=== PATIENT | male | born 1990 | race African-American/Black ===

== ENCOUNTER 2023-01-01 08:00 | Emergency (ER) | payer SELFPAY ==
[2023-01-01 09:35] VITALS: BMI 25.9
[2023-01-01] MEDS ORDERED: ACETAMINOPHEN 1000 MG/100 ML BAG IVPB ONE (09:47)
[2023-01-01] MEDS ORDERED: ACETAMINOPHEN INJECTION 100 ML IVPB ONE (10:55)
[2023-01-01 11:59] LABS: BASO % 0.8 % (0-2.0); EOS % 0.7 % (0-4.5); HEMATOCRIT 39.6 % (35.4-49); HEMOGLOBIN 13.4 GM/dL (11.7-16.9); LYMPH % 34.6 % (8-40); MCH 31.1 pg (25.7-33.7); MCHC 33.9 g/dl (32.0-35.9); MEAN CELL VOLUME 91.8 fl (80-96); MONO % 10.2 % (3.8-10.2); NEUT % 53.7 % (42.8-82.8); PLATELET COUNT 225 10^3/uL (134-434); RBC 4.32 M/mm3 (4.00-5.60); RDW 13.5 % (11.9-15.9); WHITE BLOOD COUNT 4.6 K/mm3 (4.0-10.0)
[2023-01-01 12:15] LABS: POTASSIUM 4.2 mmol/L (3.5-5.1)
[2023-01-01 12:19] LABS: BLOOD UREA NITROGEN 9.8 mg/dL (7-18); CALCIUM 10.2 mg/dL (8.5-10.1)
[2023-01-01 12:20] LABS: ALBUMIN 3.9 g/dl (3.4-5.0)
[2023-01-01 12:24] LABS: BILIRUBIN,TOTAL 0.5 mg/dL (0.2-1); TOT PROT 7.2 g/dl (6.4-8.2)
[2023-01-01 12:41] VITALS: BP 128/79; PULSE 62; RESP 17; TEMP 98.9
== END 2023-01-01 15:40 | disposition home or self-care (01) ==
LOC: JER 08:00
PROC: 3E033NZ Introduction of Analgesics, Hypnotics, Sedatives into Peripheral Vein, Percutaneous Approach (ICD-10-PCS; principal; 2023-01-01)
DX: R06.02 Shortness of breath (principal); R10.30 Lower abdominal pain, unspecified
CPT/HCPCS: 36415; 71046-TC-FY; 74177-TC; 80053; 83690; 84484; 85025; 93005; 93010; 99285-25; Q9967

== ENCOUNTER 2023-05-11 09:26 | Inpatient (IN) | payer OTHER ==
[2023-05-11 09:39] VITALS: BMI 25.2
[2023-05-11] MEDS ORDERED: MAG HYDROX/AL HYDROX/SIMETH 30 ML UNIT-DOSE CUP PO ONE (10:01)
[2023-05-11] MEDS ORDERED: ONDANSETRON 4 MG/2 ML VIAL IVPUSH ONE (10:01)
[2023-05-11] MEDS ORDERED: LACTATED RINGERS SOLUTION 1000 ML INFUS.BAG IV ONE (10:01)
[2023-05-11] MEDS ORDERED: FAMOTIDINE 20 MG/50 ML IVPB 20 MG/50 ML MG IVPB ONE ×2 (10:01→11:10)
[2023-05-11] MEDS ORDERED: ACETAMINOPHEN 1000 MG/100 ML BAG IVPB ONE (10:01)
[2023-05-11] MEDS ORDERED: ACETAMINOPHEN INJECTION 100 ML IVPB ONE (11:09)
[2023-05-11] MEDS ORDERED: ONDANSETRON 4 MG/2 ML VIAL ONE (11:09)
[2023-05-11] MEDS ORDERED: MAG HYDROX/AL HYDROX/SIMETH 30 ML UNIT-DOSE CUP ONE (11:09)
[2023-05-11 11:26] LABS: BASO % 0.5 % (0-2.0); EOS % 0.9 % (0-4.5); HEMOGLOBIN 13.4 GM/dL (11.7-16.9); LYMPH % 16.9 % (8-40); MCH 30.8 pg (25.7-33.7); MCHC 32.7 g/dl (32.0-35.9); MEAN PLT VOLUME 9.2 fl (7.5-11.1); MONO % 9.6 % (3.8-10.2); NEUT % 72.1 % (42.8-82.8); PLATELET COUNT 244 10^3/uL (134-434); RBC 4.37 M/mm3 (4.00-5.60); RDW 13.2 % (11.9-15.9); WHITE BLOOD COUNT 5.4 K/mm3 (4.0-10.0)
[2023-05-11 11:29] LABS: EPI CELLS 30 /uL (0-25.1); HYALINE CASTS 2 /uL (0-3.1); PH,URINE 6.5 (5.0-8.0); URINE APPEARANCE CLEAR; URINE BACTERIA 60 /uL (0-1359); URINE BILIRUBIN 2+ (NEGATIVE); URINE COLOR DK YELLOW; URINE GLUCOSE (UA) NEGATIVE (NEGATIVE); URINE KETONE 1+ (NEGATIVE); URINE LEUK ESTERASE 2+ (NEGATIVE); URINE NITRITE NEGATIVE (NEGATIVE); URINE PROTEIN TRACE (NEGATIVE); URINE RBC 30 /uL (0-23.9); URINE WBC 175 /uL (0-25.8)
[2023-05-11 11:51] LABS: CHLORIDE 104 mmol/L (98-107); SODIUM 136 mmol/L (136-145)
[2023-05-11 11:53] LABS: ALBUMIN 3.7 g/dl (3.4-5.0); CALCIUM 9.3 mg/dL (8.5-10.1)
[2023-05-11 11:55] LABS: BLOOD UREA NITROGEN 11.7 mg/dL (7-18); CO2 29 mmol/L (21-32); GLUCOSE,RANDOM 94 mg/dL (74-106); MAGNESIUM 2.3 mg/dL (1.8-2.4)
[2023-05-11 11:57] LABS: CREATININE 1.2 mg/dL (0.55-1.3)
[2023-05-11 11:59] LABS: ALK PHOS 152 U/L (45-117); BILIRUBIN,TOTAL 2.4 mg/dL (0.2-1); TOT PROT 8.2 g/dl (6.4-8.2)
[2023-05-11 12:23] LABS: SYPHILIS W/ RPR CONF NON-REACTIVE (NONREACTIVE)
[2023-05-11 12:29] LABS: ANION GAP 2 mmol/L (4-13); LIPASE < 10 U/L (73-393); SGOT/AST 737 U/L (15-37); SGPT/ALT 984 U/L (13-61)
[2023-05-11 13:20] LABS: CALCIUM 9.4 mg/dL (8.5-10.1)
[2023-05-11 13:21] LABS: BLOOD UREA NITROGEN 11.3 mg/dL (7-18)
[2023-05-11 14:04] LABS: HIV INTERPRETATION NEGATIVE (NEGATIVE)
[2023-05-11 14:29] LABS: INR 1.18 (0.83-1.09); PROTHROMBIN TIME (PATIENT) 13.7 SEC (9.7-13.0)
[2023-05-11 14:30] LABS: ACTIVATED PTT 38.7 SECONDS (25.2-36.5)
[2023-05-11] MEDS ORDERED: METOCLOPRAMIDE HCL INJECTION 10 MG/2 ML VIAL IVPUSH PRN (15:18)
[2023-05-11] MEDS ORDERED: morphine CARPU-JECT 4 MG/1 ML DISP.SYRIN IVPUSH ONE (16:11)
[2023-05-11] MEDS ORDERED: morphine SULFATE 4 MG/ML VIAL ONE (16:20)
[2023-05-11] MEDS: LACTATED RINGERS SOLUTION 1,000 ML IV SCH (16:41)
[2023-05-12] MEDS: LACTATED RINGERS SOLUTION 1,000 ML IV SCH ×2 (04:56→17:44)
[2023-05-12] MEDS ORDERED: ACETAMINOPHEN 325 MG TABLET (FP) PO ONE (08:48)
[2023-05-12] MEDS ORDERED: ACETAMINOPHEN 325 MG TABLET (FP) PO PRN (08:56)
[2023-05-12 09:35] LABS: BASO % 0.7 % (0-2.0); EOS % 1.7 % (0-4.5); HEMATOCRIT 36.9 % (35.4-49); HEMOGLOBIN 12.5 GM/dL (11.7-16.9); MCH 31.2 pg (25.7-33.7); MCHC 33.9 g/dl (32.0-35.9); MEAN PLT VOLUME 9.6 fl (7.5-11.1); MONO % 9.2 % (3.8-10.2); NEUT % 60.4 % (42.8-82.8); PLATELET COUNT 205 10^3/uL (134-434); RBC 4.01 M/mm3 (4.00-5.60); RDW 13.2 % (11.9-15.9); WHITE BLOOD COUNT 5.6 K/mm3 (4.0-10.0)
[2023-05-12 09:40] LABS: INR 1.19 (0.83-1.09); PROTHROMBIN TIME (PATIENT) 13.8 SEC (9.7-13.0)
[2023-05-12 09:43] LABS: ACTIVATED PTT 35.5 SECONDS (25.2-36.5)
[2023-05-12 09:57] LABS: CHLORIDE 105 mmol/L (98-107); POTASSIUM 3.8 mmol/L (3.5-5.1); SODIUM 137 mmol/L (136-145)
[2023-05-12] MEDS ORDERED: ENOXAPARIN NA (PORCINE) 40 MG/0.4 ML DISP.SYRIN SQ SCH (10:00)
[2023-05-12 10:01] LABS: ANION GAP 5 mmol/L (4-13); CO2 27 mmol/L (21-32); MAGNESIUM 1.8 mg/dL (1.8-2.4)
[2023-05-12 10:03] LABS: BLOOD UREA NITROGEN 9.8 mg/dL (7-18); LIPASE 103 U/L (73-393)
[2023-05-12 10:04] LABS: ALBUMIN 3.4 g/dl (3.4-5.0); AMYLASE 61 U/L (25-115); GLUCOSE,RANDOM 83 mg/dL (74-106); SGOT/AST 246 U/L (15-37); SGPT/ALT 698 U/L (13-61)
[2023-05-12 10:06] LABS: BILIRUBIN,DIRECT 0.9 mg/dL (0.0-0.2); PHOSPHOROUS 2.6 mg/dL (2.5-4.9); TOT PROT 6.6 g/dl (6.4-8.2)
[2023-05-12 10:07] LABS: BILIRUBIN,TOTAL 1.7 mg/dL (0.2-1)
[2023-05-12 10:09] LABS: ALK PHOS 143 U/L (45-117)
[2023-05-12] MEDS: PIPERACILLIN/TAZOB 3.375 GM 3.375 GM in DEXTROSE 5%-WATER - 50 ML IVPB SCH ×2 (12:15→17:39)
[2023-05-12] MEDS: morphine SULFATE 10 MG/5 ML UNIT-DOSE CUP PO PRN ×2 (14:20→19:57)
[2023-05-12] MEDS: POLYETHYLENE GLYCOL (HEALTHYLAX) 3350 17 GM PACKET PO SCH ×2 (14:20→21:13)
[2023-05-12 15:37] LABS: COCAINE, UR NEGATIVE (NEGATIVE); METHADONE, UR NEGATIVE (NEGATIVE); PHENCYCLIDINE,URINE NEGATIVE (NEGATIVE); URINE BARBITURATES NEGATIVE (NEGATIVE); URINE BENZODIAZEPINES NEGATIVE (NEGATIVE)
[2023-05-12 15:50] LABS: OPIATES, URI POSITIVE (NEGATIVE); URINE AMPHETAMINES NEGATIVE (NEGATIVE)
[2023-05-13] MEDS: morphine SULFATE 10 MG/5 ML UNIT-DOSE CUP PO PRN ×2 (01:24→10:04)
[2023-05-13] MEDS: PIPERACILLIN/TAZOB 3.375 GM 3.375 GM in DEXTROSE 5%-WATER - 50 ML IVPB SCH ×4 (01:24→11:20)
[2023-05-13] MEDS: POLYETHYLENE GLYCOL (HEALTHYLAX) 3350 17 GM PACKET PO SCH ×3 (05:24→21:58)
[2023-05-13] MEDS: LACTATED RINGERS SOLUTION 1,000 ML IV SCH (06:28)
[2023-05-13 10:35] LABS: BASO % 0.5 % (0-2.0); EOS % 0.5 % (0-4.5); HEMATOCRIT 40.2 % (35.4-49); HEMOGLOBIN 13.5 GM/dL (11.7-16.9); LYMPH % 26.8 % (8-40); MCH 31.4 pg (25.7-33.7); MCHC 33.7 g/dl (32.0-35.9); MEAN CELL VOLUME 93.3 fl (80-96); MEAN PLT VOLUME 9.6 fl (7.5-11.1); MONO % 8.1 % (3.8-10.2); NEUT % 64.1 % (42.8-82.8); PLATELET COUNT 230 10^3/uL (134-434); RBC 4.31 M/mm3 (4.00-5.60); RDW 12.7 % (11.9-15.9); WHITE BLOOD COUNT 6.7 K/mm3 (4.0-10.0)
[2023-05-13] MEDS ORDERED: ONDANSETRON 4 MG/2 ML VIAL IVPUSH ONE (10:41)
[2023-05-13 11:03] LABS: ALBUMIN 3.8 g/dl (3.4-5.0); CHLORIDE 102 mmol/L (98-107); POTASSIUM 3.9 mmol/L (3.5-5.1); SODIUM 135 mmol/L (136-145)
[2023-05-13 11:04] LABS: ALBUMIN 3.7 g/dl (3.4-5.0); ANION GAP 6 mmol/L (4-13); BLOOD UREA NITROGEN 8.8 mg/dL (7-18); CALCIUM 9.4 mg/dL (8.5-10.1); CO2 26 mmol/L (21-32); GLUCOSE,RANDOM 74 mg/dL (74-106)
[2023-05-13 11:08] LABS: BILIRUBIN,DIRECT 0.9 mg/dL (0.0-0.2); SGOT/AST 107 U/L (15-37); SGPT/ALT 531 U/L (13-61); TOT PROT 7.3 g/dl (6.4-8.2)
[2023-05-13 11:10] LABS: ALK PHOS 142 U/L (45-117); BILIRUBIN,TOTAL 1.9 mg/dL (0.2-1)
[2023-05-13 11:11] LABS: TOT PROT 7.5 g/dl (6.4-8.2)
[2023-05-13 11:15] LABS: BILIRUBIN,TOTAL 1.6 mg/dL (0.2-1)
[2023-05-13] MEDS ORDERED: CEFTRIAXONE 1 GM in DEXTROSE 5%-WATER - 50 ML IVPB SCH (11:15)
[2023-05-13] MEDS ORDERED: FENTANYL CITRATE/PF 50 MCG/ML VIAL ONE (12:24)
[2023-05-13] MEDS ORDERED: MIDAZOLAM HCL 2 MG/2 ML SINGLE DOSE VIAL ONE (12:24)
[2023-05-13] MEDS ORDERED: INDOMETHACIN 50 MG RECTAL SUPPOSITORY PR ONE (13:00)
[2023-05-13] MEDS ORDERED: IOHEXOL 300 MG/ML INFUS..BTL IJ ONE (13:33)
[2023-05-13] MEDS ORDERED: LACTATED RINGERS SOLUTION 1,000 ML/1,000 ML INFUS.BAG IV SCH (14:00)
[2023-05-13] MEDS ORDERED: LABETALOL HCL 20 MG/4 ML VIAL ONE (15:06)
[2023-05-13] MEDS: CEFTRIAXONE 1 GM in DEXTROSE 5%-WATER - 50 ML IVPB SCH (16:01)
[2023-05-13] MEDS ORDERED: amLODIPine BESYLATE 5 MG TABLET (FP) PO ONE (16:47)
[2023-05-13] MEDS: LACTATED RINGERS SOLUTION 1,000 ML/1,000 ML INFUS.BAG IV SCH (23:06)
[2023-05-14] MEDS: LACTATED RINGERS SOLUTION 1,000 ML/1,000 ML INFUS.BAG IV SCH (05:25)
[2023-05-14] MEDS: POLYETHYLENE GLYCOL (HEALTHYLAX) 3350 17 GM PACKET PO SCH (05:53)
[2023-05-14] MEDS ORDERED: BUPIVACAINE HCL/PF 0.25% (2.5MG/ML) 10 ML VIAL ONE (08:04)
[2023-05-14] MEDS ORDERED: ONDANSETRON 4 MG/2 ML VIAL IVPUSH PRN ×2 (09:08→12:46)
[2023-05-14] MEDS ORDERED: LACTATED RINGERS SOLUTION 1,000 ML IV SCH (09:15)
[2023-05-14] MEDS ORDERED: amLODIPine BESYLATE 5 MG TABLET (FP) PO SCH (10:00)
[2023-05-14] MEDS ORDERED: LACTATED RINGERS SOLUTION 1,000 ML/1,000 ML INFUS.BAG IV SCH ×4 (10:00→20:00)
[2023-05-14] MEDS ORDERED: BUPIVACAINE HCL/PF 0.25% (2.5MG/ML) 10 ML VIAL IJ ONE (10:23)
[2023-05-14 10:33] LABS: BASO % 0.6 % (0-2.0); EOS % 0.5 % (0-4.5); HEMATOCRIT 40.2 % (35.4-49); HEMOGLOBIN 13.2 GM/dL (11.7-16.9); LYMPH % 29.5 % (8-40); MCH 30.7 pg (25.7-33.7); MCHC 32.9 g/dl (32.0-35.9); MEAN CELL VOLUME 93.3 fl (80-96); MEAN PLT VOLUME 9.4 fl (7.5-11.1); MONO % 10.8 % (3.8-10.2); NEUT % 58.6 % (42.8-82.8); PLATELET COUNT 220 10^3/uL (134-434); RBC 4.31 M/mm3 (4.00-5.60); RDW 12.9 % (11.9-15.9); WHITE BLOOD COUNT 7.1 K/mm3 (4.0-10.0)
[2023-05-14] MEDS ORDERED: CEFOXITIN SODIUM 2 GM IVPB ONE (10:39)
[2023-05-14] MEDS ORDERED: HEPARIN NA (PORCINE) 5,000 UNITS/ML 1ML VIAL ONE (10:39)
[2023-05-14] MEDS ORDERED: ACETAMINOPHEN INJECTION 100 ML IVPB ONE (10:39)
[2023-05-14] MEDS ORDERED: PROPOFOL 40 ML ONE (10:41)
[2023-05-14] MEDS ORDERED: ROCURONIUM BROMIDE 50 MG/5 ML SYRINGE ONE (10:42)
[2023-05-14] MEDS ORDERED: KETAMINE HCL 200 MG/20 ML VIAL ONE (10:42)
[2023-05-14] MEDS ORDERED: FENTANYL CITRATE/PF 50 MCG/ML VIAL ONE ×4 (10:42→13:34)
[2023-05-14] MEDS ORDERED: MIDAZOLAM HCL 2 MG/2 ML SINGLE DOSE VIAL ONE (10:42)
[2023-05-14 10:49] LABS: POTASSIUM 3.7 mmol/L (3.5-5.1)
[2023-05-14] MEDS ORDERED: cefOXitin SODIUM 2 GM VIAL (RESTRICTED TO ID) IVPB ONE (11:04)
[2023-05-14 11:11] LABS: AMYLASE 49 U/L (25-115)
[2023-05-14 11:12] LABS: LIPASE 48 U/L (73-393)
[2023-05-14 11:14] LABS: LDH 149 U/L (87-246)
[2023-05-14 11:16] LABS: BLOOD UREA NITROGEN 6.8 mg/dL (7-18)
[2023-05-14 11:17] LABS: CALCIUM 9.6 mg/dL (8.5-10.1)
[2023-05-14 11:19] LABS: ALBUMIN 3.5 g/dl (3.4-5.0)
[2023-05-14 11:20] LABS: BILIRUBIN,DIRECT 0.5 mg/dL (0.0-0.2)
[2023-05-14] MEDS: CEFTRIAXONE 1 GM in DEXTROSE 5%-WATER - 50 ML IVPB SCH (11:41)
[2023-05-14] MEDS ORDERED: NEOSTIGMINE METHYLSULFATE 0.5 MG/1 ML - 10 ML MDV ONE (12:09)
[2023-05-14] MEDS ORDERED: oxyCODONE HCL 5 MG TABLET PO PRN ×2 (12:46)
[2023-05-14] MEDS ORDERED: POLYETHYLENE GLYCOL (HEALTHYLAX) 3350 17 GM PACKET PO SCH (14:00)
[2023-05-14 14:17] VITALS: RESP 16
[2023-05-14] MEDS ORDERED: ONDANSETRON 4 MG/2 ML VIAL IVPUSH ONE (14:45)
[2023-05-14 14:55] VITALS: BP 144/80; PULSE 95; TEMP 98.4
[2023-05-14] MEDS ORDERED: ACETAMINOPHEN 325 MG TABLET (FP) PO SCH (18:00)
[2023-05-15] MEDS ORDERED: amLODIPine BESYLATE 5 MG TABLET (FP) PO SCH (10:00)
== END 2023-05-14 18:25 | disposition home or self-care (01) | DRG 263 ==
LOC: JER 09:26 → JERBED 16:25 → J5S 18:51
PROVIDERS: ADMIT Internal Medicine
PROC: 0FC98ZZ Extirpation of Matter from Common Bile Duct, Via Natural or Artificial Opening Endoscopic (ICD-10-PCS; 2023-05-13)
PROC: 0FCD8ZZ Extirpation of Matter from Pancreatic Duct, Via Natural or Artificial Opening Endoscopic (ICD-10-PCS; 2023-05-13)
PROC: 0FT44ZZ Resection of Gallbladder, Percutaneous Endoscopic Approach (ICD-10-PCS; principal; 2023-05-14 11:00)
DX: K80.70 Calculus of gallbladder and bile duct without cholecystitis without obstruction (principal); N39.0 Urinary tract infection, site not specified; B95.1 Streptococcus, group B, as the cause of diseases classified elsewhere; E80.6 Other disorders of bilirubin metabolism; K59.00 Constipation, unspecified; R94.5 Abnormal results of liver function studies; R10.11 Right upper quadrant pain; I10 Essential (primary) hypertension
CPT/HCPCS: 0241U-QW; 36415; 74177-TC; 74330-TC; 76705-TC; 80048; 80053; 80076; 80307; 81003; 82150; 83615; 83690; 83735; 84100; 85025; 85610; 85660; 85730; 86140; 86705; 86708; 86709; 86780; 86803; 86850; 86900; 86901; 87077; 87086; 87340; 87389; 87491; 87517; 87522; 87591; 88304-TC; 93005; 93010; 94010; 94760; 99285-25; J1644; Q9967

== ENCOUNTER 2024-01-10 13:03 | Inpatient (IN) | payer OTHER ==
[2024-01-10 13:10] VITALS: BMI 25.0
[2024-01-10 14:22] LABS: HEMATOCRIT 42.2 % (35.4-49); HEMOGLOBIN 14.1 GM/dL (11.7-16.9); MCH 31.5 pg (25.7-33.7); MCHC 33.5 g/dl (32.0-35.9); MEAN CELL VOLUME 94.1 fl (80-96); PLATELET COUNT 234 10^3/uL (134-434); RBC 4.49 M/mm3 (4.00-5.60); RDW 13.2 % (11.9-15.9); WHITE BLOOD COUNT 4.8 K/mm3 (4.0-10.0)
[2024-01-10 14:44] LABS: POTASSIUM 5.7 mmol/L (3.5-5.1)
[2024-01-10 14:46] LABS: CALCIUM 9.6 mg/dL (8.5-10.1)
[2024-01-10 14:47] LABS: ALBUMIN 3.9 g/dl (3.4-5.0); BLOOD UREA NITROGEN 12.8 mg/dL (7-18); MAGNESIUM 1.9 mg/dL (1.8-2.4)
[2024-01-10 14:50] LABS: CREATININE 1.1 mg/dL (0.55-1.3)
[2024-01-10 14:52] LABS: BILIRUBIN,TOTAL 0.7 mg/dL (0.2-1); TOT PROT 7.8 g/dl (6.4-8.2)
[2024-01-10 15:20] LABS: POTASSIUM 4.2 mmol/L (3.5-5.1)
[2024-01-10 15:22] LABS: CALCIUM 9.5 mg/dL (8.5-10.1)
[2024-01-10 15:23] LABS: ALBUMIN 3.9 g/dl (3.4-5.0); BLOOD UREA NITROGEN 11.8 mg/dL (7-18)
[2024-01-10 15:27] LABS: BILIRUBIN,TOTAL 0.6 mg/dL (0.2-1); TOT PROT 7.6 g/dl (6.4-8.2)
[2024-01-10] MEDS: ACETAMINOPHEN 1000 MG/100 ML BAG IVPB ONE (23:53)
[2024-01-11] MEDS: ENOXAPARIN NA (PORCINE) 40 MG/0.4 ML DISP.SYRIN SQ SCH (09:19)
[2024-01-11 10:11] LABS: BASO % 0.7 % (0-2.0); EOS % 1.4 % (0-4.5); HEMATOCRIT 38.6 % (35.4-49); HEMOGLOBIN 13.5 GM/dL (11.7-16.9); LYMPH % 40.8 % (8-40); MEAN CELL VOLUME 91.5 fl (80-96); MEAN PLT VOLUME 8.6 fl (7.5-11.1); MONO % 9.2 % (3.8-10.2); NEUT % 47.9 % (42.8-82.8); PLATELET COUNT 211 10^3/uL (134-434); RBC 4.22 M/mm3 (4.00-5.60); RDW 13.2 % (11.9-15.9); WHITE BLOOD COUNT 4.1 K/mm3 (4.0-10.0)
[2024-01-11 10:13] LABS: INR 1.18 (0.83-1.09); PROTHROMBIN TIME (PATIENT) 13.3 SEC (9.7-13.0)
[2024-01-11 10:24] LABS: POTASSIUM 3.9 mmol/L (3.5-5.1)
[2024-01-11 10:28] LABS: CALCIUM 9.2 mg/dL (8.5-10.1)
[2024-01-11 10:29] LABS: ALBUMIN 3.4 g/dl (3.4-5.0); MAGNESIUM 1.8 mg/dL (1.8-2.4)
[2024-01-11 10:31] LABS: BILIRUBIN,TOTAL 0.8 mg/dL (0.2-1); PHOSPHOROUS 2.6 mg/dL (2.5-4.9); TOT PROT 6.8 g/dl (6.4-8.2)
[2024-01-12] MEDS: MECLIZINE HCL 25 MG TABLET (FP) PO PRN (09:40)
[2024-01-13 16:37] VITALS: RESP 18
[2024-01-15 03:36] VITALS: BP 146/90; PULSE 66; TEMP 98.3
== END 2024-01-15 03:40 | disposition short-term general hospital (02) | DRG 42 ==
LOC: JER 13:03 → JERBED 15:52 → J5S 22:03
PROVIDERS: ADMIT Student in an Organized Health Care Education/Training Program; ATTEND Internal Medicine
DX: G91.9 Hydrocephalus, unspecified (principal); I10 Essential (primary) hypertension; H55.00 Unspecified nystagmus; R42 Dizziness and giddiness; R53.1 Weakness; R26.9 Unspecified abnormalities of gait and mobility
CPT/HCPCS: 36415; 70450-TC; 80053; 83735; 84100; 85025; 85027; 85610; 87635; 93005; 93010; 97116-GP; 97161-GP; 99285-25; J0131